=== PATIENT | female | born 2000 | race Caucasian/White ===

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

== ENCOUNTER 2019-03-03 01:35 | Emergency (ER) | payer OTHER ==
[2019-03-03] MEDS ORDERED: Lidocaine 1% w/Epinephrine 1:100K 20 ML VIAL ONE (03:13)
[2019-03-03] MEDS ORDERED: HYDROcodone/Acetaminophen 5/325 mg Tablet ONE (03:13)
== END 2019-03-03 04:25 | disposition home or self-care (01) ==
LOC: ERS 01:35
DX: O99.713 Diseases of the skin and subcutaneous tissue complicating pregnancy, third trimester (principal); L05.01 Pilonidal cyst with abscess; Z3A.37 37 weeks gestation of pregnancy
CPT/HCPCS: 10080